=== PATIENT | male | born 2000 | race Two or more races ===

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

== ENCOUNTER 2022-04-17 15:23 | Emergency (ER) | payer MEDICAID ==
[~2022-04-17] VITALS: Ht 180.3 cm; Wt 129.0 kg
[2022-04-17] MEDS ORDERED: methylPREDNISolone SOD SUCC 125 MG/2 ML VL IM ONE (16:15)
[2022-04-17] MEDS ORDERED: cefTRIAXone SOD 1,000 MG VL IM ONE (16:15)
[2022-04-17] MEDS ORDERED: LIDOCAINE 1% HCL (LOCAL ANESTH.) INJ 20ML MDV ONE (16:19)
[2022-04-17] MEDS ORDERED: PENI500T2 PO (16:41)
[2022-04-17] MEDS ORDERED: IBUP800T27 PO (16:41)
[2022-04-17 16:43] VITALS: BP 141/87
== END 2022-04-17 16:50 | disposition home or self-care (01) ==
LOC: ER 15:26
DX: J03.90 Acute tonsillitis, unspecified (principal)
CPT/HCPCS: 96372; 99284; J0696; J2001; J2930

== ENCOUNTER 2022-06-09 09:11 | Emergency (ER) | payer MEDICAID ==
[~2022-06-09] VITALS: Ht 180.3 cm; Wt 123.0 kg
[~2022-06-09 09:11] MED LIST: IBUP800T27 PO; PENI500T2 PO
[2022-06-09 10:25] VITALS: BP 161/85
[2022-06-09] MEDS ORDERED: DexAMETHasone SOD PHOS 10MG/1ML VIAL INJ IM ONE (10:30)
[2022-06-09] MEDS ORDERED: PENICILLIN G BENZ 1200000 UNITS/2 ML SYRG IM ONE (11:15)
[2022-06-09] MEDS ORDERED: IBUP800T27 PO (11:26)
== END 2022-06-09 11:39 | disposition home or self-care (01) ==
LOC: ER 09:11
DX: J02.0 Streptococcal pharyngitis (principal)
CPT/HCPCS: 87880; 96372; 99284; J0561; J1100

== ENCOUNTER 2022-08-15 11:33 | Emergency (ER) | payer MEDICAID ==
[~2022-08-15] VITALS: Ht 180.3 cm; Wt 124.1 kg
[2022-08-15 12:08] VITALS: BP 124/85
[2022-08-15] MEDS ORDERED: INDO50SU PO (12:36)
[2022-08-15] MEDS ORDERED: DOXY-338 PO (12:36)
== END 2022-08-15 12:40 | disposition home or self-care (01) ==
LOC: ER 11:33
DX: N45.1 Epididymitis (principal); N50.811 Right testicular pain
CPT/HCPCS: 76870

== ENCOUNTER 2022-11-13 04:05 | Emergency (ER) | payer MEDICAID ==
[~2022-11-13] VITALS: Ht 180.3 cm; Wt 124.7 kg
[~2022-11-13 04:05] MED LIST changes: +DOXY-338 PO; +INDO50SU PO
[2022-11-13 07:15] VITALS: BP 140/86
[2022-11-13] MEDS ORDERED: CEPH-510 PO (07:32)
[2022-11-13] MEDS ORDERED: IBUP800T27 PO (07:32)
== END 2022-11-13 07:41 | disposition home or self-care (01) ==
LOC: ER 04:05
DX: L60.0 Ingrowing nail (principal); Z88.1 Allergy status to other antibiotic agents; Z88.6 Allergy status to analgesic agent
CPT/HCPCS: 73630

== ENCOUNTER 2022-12-31 06:08 | Emergency (ER) | payer MEDICAID ==
[~2022-12-31] VITALS: Ht 180.3 cm; Wt 126.0 kg
[~2022-12-31 06:08] MED LIST changes: +CEPH-510 PO
[2022-12-31 06:30] VITALS: BP 139/90
[2022-12-31] MEDS ORDERED: CEPH-510 PO (07:21)
[2022-12-31] MEDS ORDERED: IBUP800T27 PO (07:21)
== END 2022-12-31 07:42 | disposition home or self-care (01) ==
LOC: ER 06:08
DX: L60.0 Ingrowing nail (principal); Z88.1 Allergy status to other antibiotic agents; Z88.6 Allergy status to analgesic agent; Z88.0 Allergy status to penicillin

== ENCOUNTER 2024-01-01 02:01 | Emergency (ER) | payer MEDICAID ==
[~2024-01-01] VITALS: Ht 180.3 cm; Wt 135.3 kg
[~2024-01-01 02:01] MED LIST changes: -DOXY-338 PO; +DOXY-447 PO; +IBUP-1456 PO; -IBUP800T27 PO
[2024-01-01 02:25] VITALS: BP 152/93; PULSE 68; RESP 16; TEMP 98.2; O2SAT 99
[2024-01-01] MEDS ORDERED: AUG875T PO (03:32)
[2024-01-01] MEDS ORDERED: NABU-72 PO (03:32)
== END 2024-01-01 03:40 | disposition home or self-care (01) ==
LOC: ER 02:01
DX: J03.90 Acute tonsillitis, unspecified (principal); Z79.899 Other long term (current) drug therapy